=== PATIENT | female | born 1995 | race Caucasian/White ===

== ENCOUNTER 2020-08-10 11:54 | Emergency (ER) | payer OTHER ==
[~2020-08-10] VITALS: Ht 167.6 cm; Wt 102.5 kg
[~2020-08-10 11:54] MED LIST: ABILIFY20 MG PO; AMITRIPTYLINE H25 MG PO; ASPIR 8181 MG PO; BISACODYL5 MG PO; DIAZEPAM10 MG PO; FIORINAL 50-321 EACH PO; FLOVENT HFA12 G1; FLUDROCORTISON0.1 MG PO; GABAPENTIN300 MG PO; GLUCOPHAGE1000 MG PO; GLUCOPHAGE500 MG PO; K DUR10 MEQ PO; LEVSIN0.125 MG PO; METFORMIN HCL1000 MG PO; METFORMIN HCL500 MG PO; OXCARBAZEPINE150 MG PO; PANTOPRAZOLE SO40 MG PO; PHENTERMINE HCL15 MG PO; PROMETHAZINE HC25 M1 PO; PROPRANOLOL HCL80 M1 PO; TOPIRAMATE25 MG PO; TRAZODONE HCL100 MG PO; ULTRAM 50MG50 MG PO; VERAPAMIL HCL40 MG PO; ZOFRAN4 MG PO
[2020-08-10] MEDS ORDERED: SODIUM CHLORIDE 0.9% 1000ML 1,000 ML ONE (12:08)
[2020-08-10 12:24] LABS: BASOPHILS # (AUTO) 0.1 (0.0-0.1); BASOPHILS % 0.9 % (0.0-1.0); EOSINOPHILS # (AUTO) 0.1 (0.0-0.4); EOSINOPHILS % 1.2 % (0.0-6.0); HEMATOCRIT 33.2 % (34.2-44.1); HEMOGLOBIN 10.6 g/dL (12.0-16.0); LYMPHOCYTES # (AUTO) 2.4 (1.0-3.2); LYMPHOCYTES % 22.9 % (18.0-39.1); MEAN CORPUSCULAR HEMOGLOBIN 29.1 pg (28-32); MEAN CORPUSCULAR HGB CONC 31.9 g/dL (31-35); MEAN CORPUSCULAR VOLUME 91.2 fL (81-99); MONOCYTES # (AUTO) 0.7 (0.2-0.8); MONOCYTES % 6.4 % (4.4-11.3); NEUTROPHILS # (AUTO) 7.1 (2.1-6.9); NEUTROPHILS % 67.8 % (38.7-80.0); PLATELET COUNT 256 x10e3/uL (140-360); RED BLOOD COUNT 3.64 x10e6/uL (3.6-5.1); RED CELL DISTRIBUTION WIDTH 13.2 % (11.7-14.4)
[2020-08-10 12:40] LABS: INR 0.94; PROTHROMBIN TIME 13.2 seconds (11.9-14.5)
[2020-08-10 12:45] LABS: ALANINE AMINOTRANSFERASE 16 IU/L (0-55); ALBUMIN 3.6 g/dL (3.5-5.0); ALBUMIN/GLOBULIN RATIO 1.3 (0.8-2.0); ALKALINE PHOSPHATASE 57 IU/L (40-150); ANION GAP 12.4 mmol/L (8-16); BLOOD UREA NITROGEN 8 mg/dL (7-26); BUN/CREATININE RATIO 11 (6-25); CALCIUM 8.2 mg/dL (8.4-10.2); CARBON DIOXIDE 15 mmol/L (22-29); CHLORIDE 120 mmol/L (98-107); CREATININE, SERUM 0.72 mg/dL (0.57-1.11); EST GLOMERULAR FILTRATION RATE > 60 ML/MIN (60-); GLUCOSE 126 mg/dL (74-118); POTASSIUM 3.4 mmol/L (3.5-5.1); SODIUM 144 mmol/L (136-145)
[2020-08-10] MEDS ORDERED: IOPAMIDOL 370 MG/ML 200 ML INFUS..BTL INJ ONE (13:15)
[2020-08-10] MEDS ORDERED: SODIUM CHLORIDE 0.9% 100 ML ONE (13:15)
[2020-08-10 15:54] VITALS: BP 120/62
== END 2020-08-10 15:55 | disposition home or self-care (01) ==
LOC: ER 12:00 → UNDOADMOB 14:42 → ERHOLD 14:42 → ER 15:55
DX: R55 Syncope and collapse (principal); K62.5 Hemorrhage of anus and rectum; K21.9 Gastro-esophageal reflux disease without esophagitis; G62.9 Polyneuropathy, unspecified; G93.2 Benign intracranial hypertension; Z86.711 Personal history of pulmonary embolism; Z98.84 Bariatric surgery status
CPT/HCPCS: 36415; 74174; 80053; 84702; 85025; 85610; 93005; 99284; J7030; J7050; Q9967

== ENCOUNTER 2020-12-08 17:17 | Emergency (ER) | payer OTHER ==
[~2020-12-08] VITALS: Ht 165.1 cm; Wt 95.3 kg
== END 2020-12-08 18:47 | disposition left against medical advice (07) ==
LOC: ER 17:21
DX: J45.909 Unspecified asthma, uncomplicated (principal); R55 Syncope and collapse; G47.419 Narcolepsy without cataplexy; G24.9 Dystonia, unspecified
CPT/HCPCS: 36415; 71045; 82948; 93005; 99284

== ENCOUNTER 2021-03-16 20:05 | Emergency (ER) | payer OTHER ==
[~2021-03-16] VITALS: Ht 165.1 cm; Wt 95.3 kg
[2021-03-16] MEDS ORDERED: LEVETIRACETAM 500 MG TAB PO STA (20:38)
[2021-03-16 20:50] LABS: ALANINE AMINOTRANSFERASE 39 IU/L (0-55); ALBUMIN 4.1 g/dL (3.5-5.0); ALBUMIN/GLOBULIN RATIO 1.5 (0.8-2.0); ALKALINE PHOSPHATASE 62 IU/L (40-150); ANION GAP 16.1 mmol/L (8-16); BLOOD UREA NITROGEN 7 mg/dL (7-26); BUN/CREATININE RATIO 9 (6-25); CALCIUM 9.4 mg/dL (8.4-10.2); CARBON DIOXIDE 20 mmol/L (22-29); CHLORIDE 111 mmol/L (98-107); CREATINE KINASE 54 IU/L (29-168); CREATININE, SERUM 0.75 mg/dL (0.57-1.11); EST GLOMERULAR FILTRATION RATE 95 ML/MIN (60-); GLUCOSE 101 mg/dL (74-118); POTASSIUM 4.1 mmol/L (3.5-5.1); SODIUM 143 mmol/L (136-145)
== END 2021-03-16 22:19 | disposition home or self-care (01) ==
LOC: ER 20:10
DX: R07.89 Other chest pain (principal); G40.A09 Absence epileptic syndrome, not intractable, without status epilepticus; G89.29 Other chronic pain; K62.5 Hemorrhage of anus and rectum
CPT/HCPCS: 36415; 71045; 80053; 82550; 82553; 84484; 99284